=== PATIENT | female | born 1960 | race Caucasian/White ===

== ENCOUNTER 2018-02-28 07:51 | Day surgery (SDC) | payer BC ==
[~2018-02-28] VITALS: Ht 160 cm; Wt 42.4 kg
[~2018-02-28 07:51] MED LIST: VANC250C12 PO
[2018-02-28] MEDS ORDERED: normal saline 1000ml 1,000 ML IV SCH (08:10)
[2018-02-28] MEDS ORDERED: normal saline 1000ml 1,000 ML IV PRN (08:10)
[2018-02-28 08:17] VITALS: BP 112/75
[2018-02-28] MEDS ORDERED: PROC10TA10 PO (08:23)
[2018-02-28] MEDS ORDERED: ONDA8TAB6 PO (08:23)
[2018-02-28] MEDS ORDERED: POTA-82 PO (08:23)
[2018-02-28] MEDS ORDERED: LIDOcaine 1% 30ml preserv. free vial SQ ONE (09:00)
== END 2018-02-28 09:30 | disposition home or self-care (01) ==
LOC: SSTAY O 07:51
PROVIDERS: ATTEND Radiology Diagnostic Radiology
DX: R18.8 Other ascites (principal); K21.9 Gastro-esophageal reflux disease without esophagitis; M19.90 Unspecified osteoarthritis, unspecified site; Z92.21 Personal history of antineoplastic chemotherapy; Z92.3 Personal history of irradiation; Z86.19 Personal history of other infectious and parasitic diseases; Z79.891 Long term (current) use of opiate analgesic; Z79.2 Long term (current) use of antibiotics; Z85.038 Personal history of other malignant neoplasm of large intestine; Z98.890 Other specified postprocedural states; Z79.899 Other long term (current) drug therapy; Z83.3 Family history of diabetes mellitus
CPT/HCPCS: 76705; J3490; J7030

== ENCOUNTER 2018-03-02 18:49 | Inpatient (IN) | payer BC ==
[~2018-03-02] VITALS: Ht 160 cm; Wt 42.0 kg
[~2018-03-02 18:49] MED LIST changes: +ONDA8TAB6 PO; +POTA-82 PO; +PROC10TA10 PO; -VANC250C12 PO
[2018-03-02] MEDS ORDERED: normal saline 1000ML IV soln IV ONE (20:10)
[2018-03-02] MEDS ORDERED: piperacillin/tazo 3.375gm/50ml 50 ML IV ONE (20:10)
[2018-03-02] MEDS ORDERED: vancomycin/NS 1 GM ADD-VANTAGE 250 ML IV ONE (20:10)
[2018-03-02 20:58] LABS: INR 1.1 INR; PARTIAL THROMBOPLASTIN TIME 29 SECONDS (22-32); PROTHROMBIN TIME 10.9 SECONDS (9.0-12.0)
[2018-03-02 21:00] LABS: ALANINE AMINOTRANSFERASE 83 U/L (12-78); ALBUMIN 3.5 G/DL (3.4-5.0); ALBUMIN/GLOBULIN RATIO 0.7 (1.1-1.5); ALKALINE PHOSPHATASE 167 IU/L (46-116); ANION GAP 10 (8-16); ASPARTATE AMINO TRANSFERASE 50 U/L (10-37); BILIRUBIN,TOTAL 0.8 MG/DL (0.1-1.0); BLOOD UREA NITROGEN 15 MG/DL (7-18); BUN/CREATININE RATIO 13.3 (6.6-38.0); CALCIUM 10.3 MG/DL (8.5-10.1); CHLORIDE 90 MMOL/L (99-107); CREATININE 1.13 MG/DL (0.40-0.90); GLUCOSE 110 MG/DL (70-104); MAGNESIUM 1.8 MG/DL (1.5-2.4); POTASSIUM 4.5 MMOL/L (3.5-5.1); SODIUM 131 MMOL/L (135-145); TOTAL CARBON DIOXIDE 31.5 MMOL/L (24-32); TOTAL PROTEIN 8.4 G/DL (6.4-8.2); eGFR 49 ML/MIN
[2018-03-02] MEDS ORDERED: temazepam 15mg capsule PO PRN (21:00)
[2018-03-02] MEDS ORDERED: ondansetron/PF 4mg/2ml inj IV ONE (21:05)
[2018-03-02] MEDS ORDERED: dextrose 5%-normal saline 1,000 ML IV ONE (21:05)
[2018-03-02] MEDS ORDERED: OLANZAPINE 10 MG (21:17)
[2018-03-02] MEDS ORDERED: ONDANSETRON 8 MG (21:17)
[2018-03-02] MEDS ORDERED: DRONABINOL 5 MG (21:17)
[2018-03-02] MEDS ORDERED: POTASSIUM CL 20MEQ ER TABLETS (21:17)
[2018-03-02] MEDS ORDERED: POTASSIUM CL 10MEQ ER TABLETS (21:17)
[2018-03-02 21:23] LABS: BASOPHILS % (AUTO) 0.3 % (0-1); EOSINOPHILS % (AUTO) 0.1 % (0-6); HEMATOCRIT 49.1 % (35.0-45.0); HEMOGLOBIN 16.2 g/dl (12.0-16.0); LYMPHOCYTES # (AUTO) 0.6 X10'3 (1.1-4.8); LYMPHOCYTES % (AUTO) 11.6 % (21-51); MEAN CORPUSCULAR HEMOGLOBIN 30.6 PG (27.0-31.0); MEAN CORPUSCULAR HGB CONC 32.9 % (33.0-36.5); MEAN CORPUSCULAR VOLUME 93.1 FL (78-98); MEAN PLATELET VOLUME 7.2 FL (7.4-10.4); MONOCYTES # (AUTO) 0.8 X10'3 (0-0.9); MONOCYTES % (AUTO) 15.4 % (2-12); NEUTROPHILS # (AUTO) 3.9 X10'3 (1.8-7.7); NEUTROPHILS % (AUTO) 72.6 % (42-75); PLATELET COUNT 297 X10'3 (140-440); RED BLOOD COUNT 5.28 X10'6 (4.20-5.60); RED CELL DISTRIBUTION WIDTH 14.5 % (11.5-14.5); WHITE BLOOD COUNT 5.4 X10'3 (4.5-11.0)
[2018-03-02 21:52] LABS: PLATELET ESTIMATE NORMAL; TOTAL CELLS COUNTED 100
[2018-03-02] MEDS ORDERED: diatrozoate meglu/diatrozoate sod (37% iodine) 120ML oral solution ONE (21:59)
[2018-03-02] MEDS ORDERED: iohexol 300 MG/1 ML 50ml polymer ONE (22:10)
[2018-03-02] MEDS ORDERED: diatrozoate meglu/diatrozoate sod (37% iodine) 120ML oral solution PO ONE (22:25)
[2018-03-02] MEDS ORDERED: proCHLORperazine 10 MG/2 ml inj IV ONE (23:05)
[2018-03-02] MEDS ORDERED: normal saline 1000ml 1,000 ML IV SCH (23:09)
[2018-03-02] MEDS ORDERED: HYDROmorphone 1 mg/ml syringe IV PRN (23:10)
[2018-03-02] MEDS ORDERED: diphenhydrAMINE 25mg capsule PO PRN (23:10)
[2018-03-02] MEDS ORDERED: metoclopramide 5 mg/ml inj IV PRN (23:10)
[2018-03-02] MEDS ORDERED: morphine 2 MG/ML inj. syringe IV PRN (23:10)
[2018-03-02] MEDS ORDERED: HYDROcodone/acetaminophen 10/325mg tab PO PRN (23:10)
[2018-03-02] MEDS ORDERED: ondansetron/PF 4mg/2ml inj IV PRN (23:10)
[2018-03-02] MEDS ORDERED: magnesium hydroxide 30ml (MOM) UD suspension PO PRN (23:10)
[2018-03-02] MEDS ORDERED: diphenhydrAMINE 50 mg/ml inj IV PRN (23:10)
[2018-03-02] MEDS ORDERED: mag hydrox/Alum hydrox/simeth 30ml oral suspension PO PRN (23:10)
[2018-03-02] MEDS ORDERED: bisacodyl 10mg suppository rectal RC PRN (23:10)
[2018-03-02] MEDS ORDERED: acetaminophen 650mg rectal suppository RC PRN (23:10)
[2018-03-02] MEDS ORDERED: acetaminophen 325mg tablet PO PRN (23:10)
[2018-03-03 00:14] LABS: D-DIMER 2.07 MG/L FEU (0-0.50)
[2018-03-03 00:27] LABS: HEMOGLOBIN A1C 5.8 % (4.5-6.2); LIPASE 188 U/L (73-393); TROPONIN I < 0.04 NG/ML (0.0-0.05)
[2018-03-03] MEDS: pantoprazole 40 MG vial IV SCH ×2 (01:09→07:41)
[2018-03-03] MEDS: proCHLORperazine 10mg tablet PO SCH ×2 (02:57→07:41)
[2018-03-03] MEDS: piperacillin-tazo 2.25gm/50ml 50 ML IV SCH ×2 (02:58→07:41)
[2018-03-03] MEDS ORDERED: albuterol 2.5 MG/3 ML nebule NEB PRN (04:45)
[2018-03-03 06:38] LABS: BASOPHILS % (AUTO) 0.9 % (0-1); EOSINOPHILS % (AUTO) 0.4 % (0-6); HEMATOCRIT 40.7 % (35.0-45.0); HEMOGLOBIN 13.4 g/dl (12.0-16.0); LYMPHOCYTES # (AUTO) 0.6 X10'3 (1.1-4.8); LYMPHOCYTES % (AUTO) 14.3 % (21-51); MEAN CORPUSCULAR HEMOGLOBIN 30.9 PG (27.0-31.0); MEAN CORPUSCULAR HGB CONC 32.9 % (33.0-36.5); MEAN CORPUSCULAR VOLUME 93.8 FL (78-98); MEAN PLATELET VOLUME 7.3 FL (7.4-10.4); MONOCYTES # (AUTO) 0.7 X10'3 (0-0.9); MONOCYTES % (AUTO) 17.8 % (2-12); NEUTROPHILS # (AUTO) 2.7 X10'3 (1.8-7.7); NEUTROPHILS % (AUTO) 66.6 % (42-75); PLATELET COUNT 231 X10'3 (140-440); RED BLOOD COUNT 4.33 X10'6 (4.20-5.60)
[2018-03-03 07:00] VITALS: BP 105/68
[2018-03-03 07:16] LABS: ALANINE AMINOTRANSFERASE 62 U/L (12-78); ALBUMIN 2.6 G/DL (3.4-5.0); ALBUMIN/GLOBULIN RATIO 0.7 (1.1-1.5); ALKALINE PHOSPHATASE 121 IU/L (46-116); ANION GAP 9 (8-16); ASPARTATE AMINO TRANSFERASE 39 U/L (10-37); BLOOD UREA NITROGEN 12 MG/DL (7-18); BUN/CREATININE RATIO 13.3 (6.6-38.0); CALCIUM 8.9 MG/DL (8.5-10.1); CHLORIDE 99 MMOL/L (99-107); CHOL/HDL RATIO 3.2 (0.00-4.99); CHOLESTEROL 135 MG/DL (0-200); GLUCOSE 94 MG/DL (70-104); HDL CHOLESTEROL 42 MG/DL (35-60); LDL CHOLESTEROL 76 MG/DL (50-100); POTASSIUM 3.6 MMOL/L (3.5-5.1); SODIUM 137 MMOL/L (135-145); TOTAL CARBON DIOXIDE 28.9 MMOL/L (24-32); TOTAL PROTEIN 6.3 G/DL (6.4-8.2); TRIGLYCERIDES 80 MG/DL (20-135); TROPONIN I < 0.04 NG/ML (0.0-0.05); eGFR 64 ML/MIN
[2018-03-03] MEDS ORDERED: heparin, porcine 5000 units/ml vial SQ SCH (08:00)
[2018-03-03] MEDS ORDERED: vancomycin/NS 1 GM ADD-VANTAGE 250 ML IV SCH ×2 (08:00→20:00)
[2018-03-03] MEDS ORDERED: docusate sod 100mg capsule PO SCH (08:00)
[2018-03-03] MEDS ORDERED: methylPREDNISolone sod succ 125mg/2ml vial IV SCH (08:00)
[2018-03-03 08:12] LABS: TOTAL CELLS COUNTED 100
[2018-03-03 08:13] LABS: PLATELET ESTIMATE NORMAL
[2018-03-03 11:00] VITALS: BP 112/79
[2018-03-05] MEDS ORDERED: VANCOMYCIN LEVEL IV ONE (19:30)
== END 2018-03-03 12:30 | disposition left against medical advice (07) | DRG 682 ==
LOC: ER 18:49 → ED HOLD 23:09 → SUR 3N 03-03 00:30
PROVIDERS: ADMIT Family Medicine; ATTEND Nurse Practitioner Family
DX: N17.9 Acute kidney failure, unspecified (principal); E43 Unspecified severe protein-calorie malnutrition; J44.1 Chronic obstructive pulmonary disease with (acute) exacerbation; C18.9 Malignant neoplasm of colon, unspecified; E87.1 Hypo-osmolality and hyponatremia; J90 Pleural effusion, not elsewhere classified; Z68.1 Body mass index [BMI] 19.9 or less, adult; E11.9 Type 2 diabetes mellitus without complications; J98.2 Interstitial emphysema; D72.825 Bandemia
CPT/HCPCS: 36415; 71045; 74220; 80053; 80061; 83036; 83605; 83690; 83735; 83880; 84100; 84145; 84443; 84484; 85025; 85379; 85610; 85730; 87040; 87070; 93005; 93306; 94760; 96365; 96368; 99285; C9113; G0378; J0780; J1644; J2405; J2543; J2930; J3370; J7030; J7042; Q0164; Q9963; Q9967